=== PATIENT | male | born 1935 | race Caucasian/White ===

== ENCOUNTER → 2019-02-11 | Outpatient (CLI) | payer MEDICARE ==
[~2019-02-11] MED LIST: ALDACTONE50 MG PO; ALPHA LIPOIC A100 MG PO; AMARYL4 MG PO; CRESTOR40 MG PO; EFFEXOR XR37.5 MG PO; FLOMAX0.4 MG PO; LANTUS SUBQ; NEURONTIN 300M300 M2 PO; OMEGA ESSENTIA240 ML PO; PLAVIX 75 MG TA75 M1 PO; VALIUM5 MG PO; ZESTRIL40 MG PO
== END ==
LOC: M.PC 09:30
DX: M51.36 Other intervertebral disc degeneration, lumbar region (principal); M47.816 Spondylosis without myelopathy or radiculopathy, lumbar region; M48.061 Spinal stenosis, lumbar region without neurogenic claudication

== ENCOUNTER → 2019-02-15 | Outpatient (CLI) | payer MEDICARE | LOC: M.MRI 10:18 | DX: M47.26 Other spondylosis with radiculopathy, lumbar region (principal); M16.11 Unilateral primary osteoarthritis, right hip; M43.16 Spondylolisthesis, lumbar region; M41.86 Other forms of scoliosis, lumbar region; G89.29 Other chronic pain ==

== ENCOUNTER → 2019-02-18 | Outpatient (CLI) | payer MEDICARE | LOC: M.PC 04:55 | DX: M48.061 Spinal stenosis, lumbar region without neurogenic claudication (principal); M51.36 Other intervertebral disc degeneration, lumbar region; M47.816 Spondylosis without myelopathy or radiculopathy, lumbar region; M16.11 Unilateral primary osteoarthritis, right hip ==

== ENCOUNTER → 2019-02-25 | Outpatient (CLI) | payer MEDICARE ==
[~2019-02-25] MED LIST changes: +METFORMIN HCL500 MG PO
== END | disposition home or self-care (01) ==
LOC: M.PC 01:45
DX: M16.11 Unilateral primary osteoarthritis, right hip (principal); Z79.899 Other long term (current) drug therapy

== ENCOUNTER → 2019-03-13 | Outpatient (CLI) | payer MEDICARE | END | disposition home or self-care (01) | LOC: M.PC 03-11 10:00 | DX: M47.816 Spondylosis without myelopathy or radiculopathy, lumbar region (principal); M54.5 Low back pain; M51.36 Other intervertebral disc degeneration, lumbar region; M16.11 Unilateral primary osteoarthritis, right hip; M48.061 Spinal stenosis, lumbar region without neurogenic claudication; I10 Essential (primary) hypertension; E11.9 Type 2 diabetes mellitus without complications; Z90.49 Acquired absence of other specified parts of digestive tract; Z98.890 Other specified postprocedural states; Z95.1 Presence of aortocoronary bypass graft; Z79.899 Other long term (current) drug therapy; Z86.73 Personal history of transient ischemic attack (TIA), and cerebral infarction without residual deficits ==

== ENCOUNTER → 2019-04-03 | Outpatient (CLI) | payer MEDICARE | END | disposition home or self-care (01) | LOC: M.PC 03:22 | DX: M54.5 Low back pain (principal); M47.816 Spondylosis without myelopathy or radiculopathy, lumbar region; M51.36 Other intervertebral disc degeneration, lumbar region; M48.061 Spinal stenosis, lumbar region without neurogenic claudication; M16.11 Unilateral primary osteoarthritis, right hip; Z79.899 Other long term (current) drug therapy ==

== ENCOUNTER 2019-04-29 15:57 | Inpatient (IN) | payer MEDICARE ==
[~2019-04-29] VITALS: Ht 182.9 cm; Wt 78.7 kg
[2019-04-29 16:26] VITALS: BP 172/96
[2019-04-29 16:42] LABS: ABSOLUTE EOSINOPHILS 0.1 thou/uL (0.0-0.7); ABSOLUTE LYMPHOCYTES 1.2 thou/uL (0.8-5.3); ABSOLUTE MONOCYTES 0.6 thou/uL (0.0-1.2); ABSOLUTE NEUTROPHILS 3.9 thou/uL (1.6-8.1); BASOPHILS 0.8 %; HEMATOCRIT 42.1 % (42.0-52.0); HEMOGLOBIN 14.2 gm/dL (14.0-18.0); LYMPHOCYTES 20.2 %; MCH 28.9 pg (26.0-34.0); MCHC 33.6 g/dL (28.0-37.0); MCV 85.9 fL (80.0-100.0); MPV 8.7 fl. (7.2-11.1); NUCLEATED RBCS 0 /100WBC; PLATELET COUNT* 204 thou/uL (150-400); RDW-CV 14.7 % (10.5-14.5); WBC 5.7 thou/uL (4.0-11.0)
[2019-04-29 16:52] LABS: CALCIUM 9.2 mg/dL (8.5-10.1); CREATININE 1.1 mg/dL (0.6-1.3); POTASSIUM 3.7 mmol/L (3.5-5.1)
[2019-04-29 16:53] LABS: APTT 27.3 Seconds (25.0-31.3); INR 1.1; PROTIME 11.3 Seconds (9.20-11.50)
[2019-04-29 17:07] LABS: ALBUMIN 3.9 g/dL (3.4-5.0); MAGNESIUM 1.9 mg/dL (1.8-2.4); TOTAL BILIRUBIN 0.7 mg/dL (<0.1-1.0)
[2019-04-29 19:43] VITALS: BP 143/97
[2019-04-29 20:00] VITALS: BP 145/73
[2019-04-29] MEDS ORDERED: DIAZEPAM 2MG TAB2 MG PO (21:56)
[2019-04-29] MEDS ORDERED: DIAZEPAM2 MG PO (21:58)
[2019-04-29] MEDS ORDERED: VENLAFAXINE HC150 MG PO (22:10)
[2019-04-30] VITALS: BP 141/91
[2019-04-30 04:00] VITALS: BP 145/70
[2019-04-30 06:10] LABS: ABSOLUTE BASOPHILS 0.1 thou/uL (0.0-0.2); ABSOLUTE EOSINOPHILS 0.1 thou/uL (0.0-0.7); ABSOLUTE LYMPHOCYTES 1.4 thou/uL (0.8-5.3); ABSOLUTE MONOCYTES 0.8 thou/uL (0.0-1.2); ABSOLUTE NEUTROPHILS 4.1 thou/uL (1.6-8.1); BASOPHILS 1.4 %; EOSINOPHILS 1.1 %; HEMATOCRIT 42.6 % (42.0-52.0); HEMOGLOBIN 14.6 gm/dL (14.0-18.0); LYMPHOCYTES 21.8 %; MCH 29.2 pg (26.0-34.0); MCHC 34.2 g/dL (28.0-37.0); MCV 85.3 fL (80.0-100.0); MONOCYTES 12.8 %; MPV 8.6 fl. (7.2-11.1); NUCLEATED RBCS 0 /100WBC; PLATELET COUNT* 200 thou/uL (150-400); POLYS 62.9 %; RBC 4.99 mil/uL (4.50-6.00); RDW-CV 14.7 % (10.5-14.5); WBC 6.5 thou/uL (4.0-11.0)
[2019-04-30 06:15] LABS: CALCIUM 8.9 mg/dL (8.5-10.1); CREATININE 1.2 mg/dL (0.6-1.3); POTASSIUM 3.6 mmol/L (3.5-5.1)
[2019-04-30 07:55] VITALS: BP 137/62
[2019-04-30 11:41] VITALS: BP 168/78
[2019-04-30 14:50] VITALS: BP 168/78
--- NOTE | 2019-05-01 08:51 | CON ---
[address] [address] CONSULTATION Name: CATHLEEN JOLLY Room: [address] IN .R.#: [id number] Admission: 04/29/19 Attend Phys: Albert Snyder MD Discharge: 04/30/19 Date of : 39 Report #: [id number] THIS REPORT FOR: //name// CC: Albert Spencer INDICATION: Second-degree AV block. HISTORY OF PRESENT ILLNESS: The patient is a very pleasant 83-year-old gentleman with history of coronary artery disease. He reports single-vessel coronary artery bypass grafting at [facility] in 1980. He reports having a left internal mammary artery graft placed at that time. He has had no intervention since that time. He denies any history of heart failure. He denies any history of significant bradycardia in the past. The patient was in the recovery unit in the outpatient ambulatory surgery center after a recent procedure for back pain when he was noted to have second-degree AV block. His heart rates were relatively slow. He remained asymptomatic. The patient was admitted to the hospital for further evaluation. He remained hemodynamically stable overnight. His secondary heart block was noted to be intermittent. His heart rate did increase with activity. Throughout his hospitalization, he was without cardiac complaint. PAST MEDICAL HISTORY: 1. Coronary artery disease. 2. Remote coronary artery bypass grafting. 3. Type 2 diabetes mellitus. 4. Chronic back pain. 5. New diagnosis of second-degree AV block. FAMILY HISTORY: Noncontributory. SOCIAL HISTORY: The patient is a lifelong nonsmoker. He does not drink alcohol. PHYSICAL EXAMINATION: VITAL SIGNS: Presently stable. Blood pressure 137/62, and heart rate 62 and regular. GENERAL: This is a pleasant gentleman in no distress. Mood and affect appropriate. HEENT: Extraocular muscles intact. Mucous membranes are moist. NECK: Shows no jugular venous distention. There are no carotid bruits. CHEST: Reveals clear lung aguilar. CARDIOVASCULAR: Reveals a regular rhythm without gallop or murmur. ABDOMEN: Reveals normal bowel sounds. The abdomen [place] [address] CONSULTATION Name: CATHLEEN JOLLY Ada Room: [address]#: [id number] Admission: 04/29/19 Attend Phys: Albert Snyder MD Discharge: 04/30/19 Date of : 39 Report #: [id number] EXTREMITIES: Shows no edema. SKIN: Warm and dry. LABORATORY DATA: EKG on admission shows a second-degree AV block. No acute ST or T-wave abnormalities noted. Labs are reviewed and are found to be within normal limits with the exception of a serum glucose of 145. Troponins were unremarkable. CBC was within normal limits. Chest x-ray showed low lung volumes, but no acute cardiopulmonary abnormality. Findings of previous bypass noted. IMPRESSION AND RECOMMENDATIONS: 1. Coronary artery disease, presently stable. 2. Type 2 diabetes mellitus, presently stable. 3. Second-degree atrioventricular block. The patient remains asymptomatic. I do not see indication for pacemaker placement at this time. Would recommend outpatient monitoring. 4. Chronic back pain per primary physician. 5. Dyslipidemia. Continue Crestor 40 mg daily. At this point in time, I believe the patient could be safely discharged to home and follow up with primary machinist/machine builder. <ELECTRONICALLY SIGNED> By: Angus Flanagan MD, FACC 05/01/19 0851 1744 2040Micjose Flanagan MD, FACC /nt
--- NOTE | 2019-05-01 16:53 | EKG ---
[place] [address] ELECTROCARDIOGRAM REPORT Name: CATHLEEN JOLLY Room: [address] IN M.R.#: [id number] Admission: 04/29/19 Attend Phys: Albert Snyder MD Discharge: 04/30/19 Date of : 39 Report #: [id number] THIS REPORT FOR: //name// [facility] ED Test Date: 2019-04-29 Test Time: 16:19:08 Pat Name: CATHLEEN JOLLY Department: Room: [facility] Gender: M Plugger: TP : 1935 Requested By: Jayden John Order Number: [id number] MD: Angus Flanagan Measurements Intervals [place] Rate: 57 P: 30 NV: 239 QRS: 18 QRSD: 92 T: 103 QT: 418 QTc: 407 Interpretive Statements Sinus rhythm Prolonged NV interval Probable left atrial enlargement Abnormal R-wave progression, early transition Borderline T wave abnormalities Baseline wander in lead(s) V4 No previous ECG available for comparison Electronically Signed On 05-01-2019 16:52:58 LOADING MACHINE OPERATOR HELPER by Angus Flanagan [email or web address] <ELECTRONICALLY SIGNED> By: Angus Flanagan MD, FACC 05/01/19 1652 1619 1619 Angus Flanagan MD, FAC /EPI
== END 2019-04-30 15:30 | disposition home or self-care (01) | DRG 309 ==
LOC: M.ERS 15:57 → M.TBA-ER 17:21 → M.2W 17:21
PROVIDERS: Emergency Medicine Emergency Medical Services; ADMIT Internal Medicine
DX: I44.1 Atrioventricular block, second degree (principal); J98.11 Atelectasis; I49.9 Cardiac arrhythmia, unspecified; I25.10 Atherosclerotic heart disease of native coronary artery without angina pectoris; E11.9 Type 2 diabetes mellitus without complications; G89.29 Other chronic pain; E78.5 Hyperlipidemia, unspecified; Z95.1 Presence of aortocoronary bypass graft; Z79.899 Other long term (current) drug therapy

== ENCOUNTER → 2019-05-20 | Outpatient (CLI) | payer MEDICARE ==
[~2019-05-20] MED LIST changes: +DIAZEPAM 2MG TAB2 MG PO; +DIAZEPAM2 MG PO; +VENLAFAXINE HC150 MG PO
== END ==
LOC: M.PC 03:00
DX: M48.061 Spinal stenosis, lumbar region without neurogenic claudication (principal); M47.816 Spondylosis without myelopathy or radiculopathy, lumbar region; M51.36 Other intervertebral disc degeneration, lumbar region; M16.11 Unilateral primary osteoarthritis, right hip

== ENCOUNTER 2019-06-12 11:03 | Inpatient (IN) | payer MEDICARE ==
[2019-06-12] VITALS (21 sets, daily range): BP systolic 67–120; BP diastolic 40–59
[~2019-06-12] VITALS: Ht 182.9 cm; Wt 75.3 kg
[2019-06-12 11:34] LABS: ABSOLUTE BASOPHILS 0.1 thou/uL (0.0-0.2); ABSOLUTE EOSINOPHILS 0.1 thou/uL (0.0-0.7); ABSOLUTE LYMPHOCYTES 1.6 thou/uL (0.8-5.3); ABSOLUTE MONOCYTES 1.1 thou/uL (0.0-1.2); ABSOLUTE NEUTROPHILS 9.5 thou/uL (1.6-8.1); EOSINOPHILS 0.6 %; HEMATOCRIT 42.5 % (42.0-52.0); HEMOGLOBIN 14.1 gm/dL (14.0-18.0); LYMPHOCYTES 13.1 %; MCH 28.8 pg (26.0-34.0); MCHC 33.1 g/dL (28.0-37.0); MCV 86.8 fL (80.0-100.0); MONOCYTES 9.2 %; MPV 8.5 fl. (7.2-11.1); NUCLEATED RBCS 0 /100WBC; PLATELET COUNT* 252 thou/uL (150-400); POLYS 76.1 %; RDW-CV 15.6 % (10.5-14.5); WBC 12.5 thou/uL (4.0-11.0)
[2019-06-12 12:00] LABS: CALCIUM 8.9 mg/dL (8.5-10.1); CREATININE 2.6 mg/dL (0.6-1.3); POTASSIUM 4.3 mmol/L (3.5-5.1)
[2019-06-12 12:10] LABS: ALBUMIN 4.1 g/dL (3.4-5.0); TOTAL BILIRUBIN 0.5 mg/dL (<0.1-1.0); TOTAL PROTEIN 7.6 g/dL (6.4-8.2)
[2019-06-12 14:32] LABS: URINE BILIRUBIN NEGATIVE (Negative); URINE BLOOD TRACE (Negative); URINE CLARITY CLEAR; URINE COLOR YELLOW; URINE GLUCOSE-RANDOM NEGATIVE (Negative); URINE KETONES NEGATIVE (Negative); URINE LEUKOCYTES-REFLEX NEGATIVE (Negative); URINE NITRITE-REFLEX NEGATIVE (Negative); URINE PROTEIN NEGATIVE (Negative); URINE SPECIFIC GRAVITY <= 1.005 (1.005-1.030); URINE UROBILINOGEN 0.2 E.U./dl (0.2-1.0)
--- NOTE | 2019-06-12 15:06 | EKG ---
[place] [address] ELECTROCARDIOGRAM REPORT Name: CATHLEEN JOLLY Room: [place] [address] ADM IN .R.#: [id number] Admission: 06/12/19 Attend Phys: Ada Patiño Discharge: Date of : 39 Report #: [id number] THIS REPORT FOR: //name// [facility] ED Test Date: 2019-06-12 Test Time: 11:09:43 Pat Name: CATHLEEN JOLLY Department: Room: [facility] Gender: M Director Of Medical Services: [facility] : 1935 Requested By: Azeb Sosa Order Number: [id number] MD: Noel Bonilla Measurements Intervals [place] Rate: 66 P: 5 PA: 196 QRS: 32 QRSD: 83 T: 34 QT: 370 QTc: 388 Interpretive Statements Sinus rhythm Abnormal R-wave progression, early transition Compared to ECG 04/29/2019 16:19:08 First degree AV block no longer present T-wave abnormality no longer present Electronically Signed On 06-12-2019 15:05:32 SAWMILL RELIEF WORKER by Noel Bonilla [email or web address] <ELECTRONICALLY SIGNED> By: Noel Bonilla MD, [facility] 06/12/19 1505 1109 1109 Noel Bonilla MD, [facility] /EPI
--- NOTE | 2019-06-12 15:07 | EKG ---
[place] [address] ELECTROCARDIOGRAM REPORT Name: CATHLEEN JOLLY Room: [place] [address] ADM IN ..#: [id number] Admission: 06/12/19 Attend Phys: Ada Patiño Discharge: Date of : 39 Report #: [id number] THIS REPORT FOR: //name// [facility] ED Test Date: 2019-06-12 Test Time: 12:09:54 Pat Name: CATHLEEN JOLLY Department: Room: [facility] Gender: M Vaccine Manager: [facility] : 1935 Requested By: Azeb Sosa Order Number: [id number] MD: Noel Bonilla Measurements Intervals [place] Rate: 39 P: 46 OR: 186 QRS: 40 QRSD: 82 T: 50 QT: 445 QTc: 359 Interpretive Statements Sinus rhythm with 2:1 block Probable left atrial enlargement Abnormal R-wave progression, early transition Compared to ECG 04/29/2019 16:19:08 2:1 AV block now present Sinus rhythm no longer present First degree AV block no longer present T-wave abnormality no longer present Electronically Signed On 06-12-2019 15:06:41 WIND UP OPERATOR by Noel Bonilla [email or web address] <ELECTRONICALLY SIGNED> By: Noel Bonilla MD, FACC 06/12/19 1506 1209 1209 Noel Bonilla MD, [facility] /EPI
[2019-06-13] VITALS (17 sets, daily range): BP systolic 85–126; BP diastolic 37–76
[2019-06-13 09:47] LABS: CREATININE 1.7 mg/dL (0.6-1.3); POTASSIUM 4.4 mmol/L (3.5-5.1)
--- NOTE | 2019-06-13 17:12 | EKG ---
[place] [address] ELECTROCARDIOGRAM REPORT Name: CATHLEEN JOLLY Room: [address] ADM IN M.R.#: [id number] Admission: 06/12/19 Attend Phys: Ada Patiño Discharge: Date of : 39 Report #: [id number] THIS REPORT FOR: //name// [facility] Test Date: 2019-06-13 Test Time: 14:44:05 Pat Name: CATHLEEN JOLLY Department: Room: [address] Gender: M Re Recording Mixer: : 1935 Requested By: Micha Mehta Order Number: [id number] Romeo MD: Noel Bonilla Measurements Intervals [place] Rate: 59 P: 9 FL: 215 QRS: 44 QRSD: 88 T: 61 QT: 385 QTc: 382 Interpretive Statements Sinus rhythm Borderline prolonged FL interval Compared to ECG 06/12/2019 12:09:54 2:1 AV block no longer present Electronically Signed On 06-13-2019 17:11:33 POLYMERIZATION HELPER by Noel Bonilla [email or web address] <ELECTRONICALLY SIGNED> By: Noel Bonilla MD, [facility] 06/13/19 1711 1444 1444 Noel Bonilla MD, FAC /EPI
[2019-06-14 00:09] VITALS: BP 140/62
[2019-06-14 04:08] VITALS: BP 100/67
[2019-06-14 07:40] VITALS: BP 119/76
[2019-06-14 11:05] LABS: ABSOLUTE BASOPHILS 0.1 thou/uL (0.0-0.2); ABSOLUTE MONOCYTES 0.7 thou/uL (0.0-1.2); BASOPHILS 0.9 %; EOSINOPHILS 0.6 %; HEMOGLOBIN 13.1 gm/dL (14.0-18.0); LYMPHOCYTES 12.5 %; MCH 29.2 pg (26.0-34.0); MCHC 33.7 g/dL (28.0-37.0); MCV 86.8 fL (80.0-100.0); MONOCYTES 9.2 %; MPV 8.7 fl. (7.2-11.1); NUCLEATED RBCS 0 /100WBC; PLATELET COUNT* 209 thou/uL (150-400); POLYS 76.8 %; RDW-CV 15.9 % (10.5-14.5); WBC 7.8 thou/uL (4.0-11.0)
[2019-06-14 11:21] LABS: CALCIUM 8.7 mg/dL (8.5-10.1); CREATININE 1.6 mg/dL (0.6-1.3); POTASSIUM 4.4 mmol/L (3.5-5.1)
--- NOTE | 2019-06-14 13:05 | EKG ---
[place] [address] ELECTROCARDIOGRAM REPORT Name: CATHLEEN JOLLY Room: [address] IN .R.#: [id number] Admission: 06/12/19 Attend Phys: Ada Patiño Discharge: Date of : 39 Report #: [id number] THIS REPORT FOR: //name// [facility] Test Date: 2019-06-14 Test Time: 10:07:22 Pat Name: CATHLEEN JOLLY Department: Room: [facility] Gender: M Work Force Advisor: : 1935 Requested By: Angus Flanagan Order Number: [id number] Romeo MD: Noel Bonilla Measurements Intervals [place] Rate: 69 P: 29 [place]: 184 QRS: 23 QRSD: 87 T: 37 QT: 362 QTc: 388 Interpretive Statements Sinus rhythm Compared to ECG 06/13/2019 14:44:05 No significant changes Electronically Signed On 06-14-2019 13:05:04 SAP BOBJ DEVELOPER by Noel Bonilla [email or web address] <ELECTRONICALLY SIGNED> By: Noel Bonilla MD, [facility] 06/14/19 1305 1007 1007 Noel Bonilla MD, FACC /EPI
[2019-06-14 13:39] VITALS: BP 106/60
--- NOTE | 2019-06-14 13:45 | CON ---
[address] [address] CONSULTATION Name: CATHLEEN JOLLY Room: [address] IN .R.#: [id number] Admission: 06/12/19 Attend Phys: Ada Patiño Discharge: Date of : 39 Report #: [id number] THIS REPORT FOR: //name// CC: MARCUS Mehta CARDIOLOGY CONSULTATION INDICATION: Symptomatic bradycardia. HISTORY OF PRESENT ILLNESS: The patient is a very pleasant 83-year-old gentleman who presented to the pain clinic for right hip injection. He was complaining of lightheadedness, dizziness and in general, not feeling well. He was noted to be in a second-degree heart block with bradycardia with heart rates in the 30s. The patient was transferred to the Emergency Room where he was then admitted to the hospital. The patient had a similar episode in April, on the 2nd of the month, where he was again noted to be in second-degree heart block. At that time, he was not having symptoms. He denies chest pain or shortness of breath. He is without other cardiac complaint. PAST MEDICAL HISTORY: 1. Coronary artery disease with HURLEY graft to the LAD in 1980. 2. Type 2 diabetes mellitus. 3. Chronic back pain. 4. History of second-degree AV block that had formally been asymptomatic. FAMILY HISTORY: Noncontributory. SOCIAL HISTORY: The patient is a lifelong nonsmoker. He does not drink alcohol. ALLERGIES: None documented. HOME MEDICATIONS: Plavix 75 mg daily, diazepam 2 mg daily, Neurontin 300 mg b.i.d., Amaryl 4 mg daily, Lantus 10 units subQ at bedtime, lisinopril 40 mg daily, metformin 250 mg b.i.d., fish oil t.i.d., Crestor 40 mg daily, Flomax 0.4 mg daily, alpha lipoic acid 100 mg capsule daily, venlafaxine ER 150 mg daily. PHYSICAL EXAMINATION: VITAL SIGNS: Blood pressure 99/46, pulse 40. GENERAL: This is a pleasant gentleman who does not appear to be in acute distress. Mood and affect appropriate. HEENT: The patient is wearing glasses. Extraocular muscles intact. Mucous membranes [place] [address] CONSULTATION Name: CATHLEEN JOLLY Room: [address]#: [id number] Admission: 06/12/19 Attend Phys: Ada Patiño Discharge: Date of : 39 Report #: [id number] NECK: Shows no jugular venous distention. I did not appreciate carotid bruit. CHEST: Reveals clear lung aguilar. CARDIOVASCULAR: Reveals a regular rhythm that is bradycardic. I do not appreciate gallop or murmur. ABDOMEN: Reveals normal bowel sounds. The abdomen is soft, nontender. EXTREMITIES: Shows no edema. SKIN: Dry. IMPRESSION AND RECOMMENDATIONS: 1. Second-degree atrioventricular block with symptoms of bradycardia including lightheadedness, dizziness and fatigue. Plan dual chamber permanent pacemaker placement at this time as it appears he is having progression of his heart block. 2. Coronary artery disease, presently it is stable. He is not having any symptoms to suggest angina or acute coronary syndrome. 3. Diabetes per primary physician. 4. Dyslipidemia. Continue rosuvastatin at current dose. <ELECTRONICALLY SIGNED> By: Angus Flanagan MD, FACC 06/14/19 1345 1305 [id number] Flanagan MD, FACC /nt
[2019-06-14 18:14] VITALS: BP 109/55
[2019-06-14 20:00] VITALS: BP 103/64
[2019-06-15] VITALS: BP 119/61
[2019-06-15 04:00] VITALS: BP 82/48
[2019-06-15 08:00] VITALS: BP 113/66
[2019-06-15 12:00] VITALS: BP 100/62
[2019-06-15 16:30] VITALS: BP 101/46
[2019-06-15 20:00] VITALS: BP 89/55
[2019-06-16] VITALS: BP 118/73
[2019-06-16 04:00] VITALS: BP 88/54
[2019-06-16 08:00] VITALS: BP 130/77
[2019-06-16] MEDS ORDERED: APAP W/CODEINE1 TA2 PO (09:05)
[2019-06-16 12:06] VITALS: BP 100/50
== END 2019-06-16 12:59 | disposition home health service (06) | DRG 242 ==
LOC: M.ERS 13:18 → M.TBA-ER 13:18 → M.ICU 13:27 → M.TBA-ER 13:27 → M.ICU 16:12 → M.2W 06-13 19:30
PROVIDERS: Internal Medicine; Personal Emergency Response Attendant; ADMIT Internal Medicine
PROC: 0JH606Z Insertion of Pacemaker, Dual Chamber into Chest Subcutaneous Tissue and Fascia, Open Approach (ICD-10-PCS; principal; 2019-06-13)
PROC: 02HK3JZ Insertion of Pacemaker Lead into Right Ventricle, Percutaneous Approach (ICD-10-PCS; principal; 2019-06-13)
PROC: 02H63JZ Insertion of Pacemaker Lead into Right Atrium, Percutaneous Approach (ICD-10-PCS; principal; 2019-06-13)
DX: I44.1 Atrioventricular block, second degree (principal); N17.0 Acute kidney failure with tubular necrosis; M48.061 Spinal stenosis, lumbar region without neurogenic claudication; G89.29 Other chronic pain; I10 Essential (primary) hypertension; M16.10 Unilateral primary osteoarthritis, unspecified hip; M47.896 Other spondylosis, lumbar region; M51.36 Other intervertebral disc degeneration, lumbar region; I95.1 Orthostatic hypotension; I25.10 Atherosclerotic heart disease of native coronary artery without angina pectoris; E78.5 Hyperlipidemia, unspecified; F41.9 Anxiety disorder, unspecified; M54.9 Dorsalgia, unspecified; N40.0 Benign prostatic hyperplasia without lower urinary tract symptoms; G44.209 Tension-type headache, unspecified, not intractable; E11.40 Type 2 diabetes mellitus with diabetic neuropathy, unspecified; Z79.4 Long term (current) use of insulin; Z79.899 Other long term (current) drug therapy; Z91.81 History of falling; Z95.1 Presence of aortocoronary bypass graft; Z79.82 Long term (current) use of aspirin; Z79.84 Long term (current) use of oral hypoglycemic drugs; Z86.73 Personal history of transient ischemic attack (TIA), and cerebral infarction without residual deficits; Z87.891 Personal history of nicotine dependence; Z90.49 Acquired absence of other specified parts of digestive tract

== ENCOUNTER → 2019-07-03 | Outpatient (CLI) | payer MEDICARE ==
[~2019-07-03] MED LIST changes: +APAP W/CODEINE1 TA2 PO
== END | disposition home or self-care (01) ==
LOC: M.PC 13:50
DX: M25.551 Pain in right hip (principal); M16.11 Unilateral primary osteoarthritis, right hip; Z98.890 Other specified postprocedural states; Z79.899 Other long term (current) drug therapy

== ENCOUNTER → 2019-07-17 | Outpatient (CLI) | payer MEDICARE | LOC: M.PC 00:24 | DX: M51.36 Other intervertebral disc degeneration, lumbar region (principal); M47.816 Spondylosis without myelopathy or radiculopathy, lumbar region; M48.061 Spinal stenosis, lumbar region without neurogenic claudication; M79.651 Pain in right thigh; M25.551 Pain in right hip ==

== ENCOUNTER → 2019-10-16 | Outpatient (CLI) | payer MEDICARE | LOC: M.PC 01:46 | DX: M47.816 Spondylosis without myelopathy or radiculopathy, lumbar region (principal); M51.36 Other intervertebral disc degeneration, lumbar region; M48.061 Spinal stenosis, lumbar region without neurogenic claudication; M25.551 Pain in right hip; M79.651 Pain in right thigh ==